=== PATIENT | female | born 1960 | race Caucasian/White ===

== ENCOUNTER 2022-12-23 14:12 | Emergency (ER) | payer SELFPAY ==
[~2022-12-23] VITALS: Ht 162.6 cm; Wt 67.6 kg
[2022-12-23 14:20] VITALS: BP 158/95
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
[2022-12-23] MEDS ORDERED: IBUPROFEN 600 MG TAB PO ONE (14:50)
[2022-12-23] MEDS ORDERED: IBUP-2213 PO (15:30)
[2022-12-23] MEDS ORDERED: METH-1681 PO (15:30)
[2022-12-23] MEDS ORDERED: LID5T TP (15:30)
== END 2022-12-23 15:45 | disposition home or self-care (01) ==
LOC: MED 14:12
DX: S16.1XXA Strain of muscle, fascia and tendon at neck level, initial encounter (principal); S40.011A Contusion of right shoulder, initial encounter; Z79.899 Other long term (current) drug therapy; V49.88XA Car occupant (driver) (passenger) injured in other specified transport accidents, initial encounter; Y93.89 Activity, other specified; Y92.89 Other specified places as the place of occurrence of the external cause; Y99.8 Other external cause status
CPT/HCPCS: 72050; 73030; 99284